=== PATIENT | female | born 1950 | race Caucasian/White ===

== ENCOUNTER 2017-01-12 09:27 | Day surgery (SDC) | payer OTHER ==
[2017-01-08 11:11] LABS: BASOPHILS 0.4 %; BASOPHILS ABSOLUTE 0.02 10/3/uL (0.0-0.16); HEMATOCRIT 39.4 % (36.0-48.0); HEMOGLOBIN 13.5 g/dL (12.0-16.0); IMMATURE GRANULOCYTES 0.2 %; IMMATURE GRANULOCYTES ABSOLUTE 0.01 10/3/uL (0.0-0.11); LYMPHOCYTES 16.5 %; LYMPHOCYTES ABSOLUTE 0.83 10/3/uL (0.67-4.30); MEAN CORPUS HGB CONC 34.3 g/dL (32.0-36.0); MEAN CORPUSCULAR HEMOGLOB 30.2 pg (26.0-34.0); MEAN CORPUSCULAR VOLUME 88.1 fL (80-100); MEAN PLATELET VOLUME 10.8 fL (9.2-13.0); MONOCYTES ABSOLUTE 0.35 10/3/uL (0.21-1.20); NEUTROPHILS 73.9 %; NEUTROPHILS ABSOLUTE 3.71 10/3/uL (2.02-8.40); PLATELET COUNT 168 10/3/uL (150-400); RBC DISTRIBUTION WIDTH 13.2 % (12.0-16.0); RED CELL COUNT 4.47 10/6/uL (4.0-5.6)
[2017-01-08 11:15] LABS: MANUAL DIFF NO %
[2017-01-08 11:29] LABS: BUN (BLOOD UREA NITROGEN) 21 MG/DL (6-23); CALCIUM, SERUM 8.8 MG/DL (8.5-10.4); CHLORIDE, SERUM 110 MMOL/L (96-112); CO2 (CARBON DIOXIDE) 27 MMOL/L (24-34); CREATININE 0.67 MG/DL (0.55-1.02); GFR AFRICAN AMERICAN 107 ML/MIN (>=60); GFR NON AFRICAN AMERICAN 92 ML/MIN (>=60); GLUCOSE, SERUM 88 MG/DL (60-99); POTASSIUM, SERUM 4.1 MMOL/L (3.5-5.3); SODIUM, SERUM 146 MMOL/L (135-148)
--- NOTE | ~2017-01-12 | OP ---
Record Of Operation [facility] [address] [place]. 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 POSTOPERATIVE DIAGNOSES: 1. 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 2. Inability to visualize any remaining cervix. PROCEDURE: Examination under anesthesia. CPT code 12114. SURGEON: Dion Laguna M.D. ESTIMATED BLOOD LOSS: Minimal. COMPLICATIONS: None. FINDINGS AND INDICATIONS: This is a 66-year-old female, who was taken to the operating room several months ago for a cone biopsy which revealed a micro invasive squamous cell carcinoma. It was recommended that she undergo a hysterectomy, however, she has failed to follow up with her previous surgeon. She then presented to our office for followup and a Pap smear was performed which returned consistent with high grade dysplasia. At the time of that Pap smear, it appeared that her cervix was visible, however, when she was taken to the operating room for a repeat cone biopsy, there is no normal cervix remaining. There was also no gross evidence of disease and no evidence of parametrial involvement. An attempt to find the cervical os was then done without success. The intended cone biopsy was aborted. PROCEDURE IN DETAIL: The patient was taken to the operating room, placed in a supine position for administration of general anesthesia. She was then placed in dorsal lithotomy position and prepped and draped in the usual sterile fashion. An examination was performed with the above findings noted. At the completion of the procedure the anesthesia was reversed. The patient was extubated and brought to the recovery room in stable condition. RUI/LASHAUN Dion Laguna M.D. / [id number] CC: Dion Laguna M.D.
[~2017-01-12 09:27] MED LIST: PENICILLN VK500 MG PO; VALERIAN ROOT
[2017-02-08] MEDS ORDERED: L-THEANINE PO (14:01)
[2017-02-17] MEDS ORDERED: PCET PO (12:40)
[2017-02-17] MEDS ORDERED: ZOFRAN8 PO (12:42)
== END 2017-01-12 18:14 | disposition home or self-care (01) ==
LOC: SDC 09:27
PROVIDERS: Obstetrics & Gynecology Gynecologic Oncology
PROC: 0UJD7ZZ Inspection of Uterus and Cervix, Via Natural or Artificial Opening (ICD-10-PCS; principal; 2017-01-12 14:30)
DX: C53.9 Malignant neoplasm of cervix uteri, unspecified (principal); E04.9 Nontoxic goiter, unspecified; M19.90 Unspecified osteoarthritis, unspecified site; Z91.040 Latex allergy status; Z79.1 Long term (current) use of non-steroidal anti-inflammatories (NSAID); Z98.890 Other specified postprocedural states
CPT/HCPCS: 80048; 85025; 93005; J0690; J2250; J2405; J3010